=== PATIENT | male | born 1960 | race Hispanic/Latino ===

== ENCOUNTER 2019-01-17 00:05 | Emergency (ER) | payer OTHER ==
[2019-01-17 00:14] VITALS: BMI 34.0
[2019-01-17] MEDS ORDERED: Albuterol-Ipratrop 3 mg / 0.5 (3 ml) UD ONE (00:16)
[2019-01-17] MEDS ORDERED: Sodium Chloride 0.9% 1,000 ML IV STA (00:40)
--- NOTE | 2019-01-17 00:44 | ED PDOC ---
Arrival/HPI - General Time Seen by Provider: 01/17/19 00:30 Historian: Patient - History of Present Illness Narrative History of Present Illness (Text): 01/17/19 00:41 58 year old male, with no significant past medical history, presents to the emergency department with fever and cough, for 1 day. Patient states he began to feel feverish around 11:00 yesterday. Patient states he also began to have an associated cough. Patient states he is a smoker and drinker. Patient denies any nausea, vomiting, diarrhea, sore throat, chest pain, or any other complaints. Time/Duration: 24 hours Symptom Onset: Gradual Symptom Course: Unchanged Activities at Onset: Light Context: Home Past Medical History - Provider Review Nursing Documentation Reviewed: Yes Family/Social History - Physician Review Nursing Documentation Reviewed: Yes Family/Social History: No Known Family HX Allergies/Home Meds Allergies/Adverse Reactions: Allergies No Known Allergies Allergy (Verified 01/17/19 00:14) Review of Systems - Physician Review All systems were reviewed & negative as marked: Yes - Review of Systems Constitutional: Fevers Respiratory: Cough Cardiovascular: absent: Chest Pain Gastrointestinal: absent: Abdominal Pain, Diarrhea, Nausea, Vomiting Physical Exam - Physical Exam Narrative Physical Exam (Text): 01/17/19 00:45 Gen: VS reviewed, alert, well developed, well nourished, nontoxic, mild distress, hot to the touch, appears somewhat tremulous. ENT: normal pharynx. postnasal drip. Eye: EOMI, PERRL. Neck: no JVD, supple, no adenopathy. CV: rapid rate, regular rhythm, no rubs, no murmur, no gallops, S1, S2, pulses equal and strong. Pulm: no distress, clear to auscultation, no wheeze, no rhonchi, breath sounds equal, no rales. Abd: soft, nontender, no guarding, no rebound, no rigidity, normal bowel sounds. Ext: no edema. Skin: good color, no rash, no cyanosis. Psych: responds appropriately to questions, normal affect. Neuro: oriented x 3, CN2-12 intact grossly, motor intact, sensation intact. Vital Signs Reviewed: Yes Vital Signs Temp Pulse Resp BP Pulse Ox 01/17/19 00:30 102.9 F H 123 H 26 H 207/106 H 98 Temperature: Febrile Blood Pressure: Hypertensive Pulse: Tachycardic Respiratory Rate: Tachypneic Appearance: Positive for: Well-Appearing, Non-Toxic, Comfortable Pain Distress: None Mental Status: Positive for: Alert and Oriented X 3 Medical Decision Making ED Course and Treatment: 01/17/19 00:48 Impression: 58 year old male presents with cough and fever. Plan: -- VBG -- EKG -- Labs -- Chest X-ray -- Motrin -- Rapid Flu -- Reassess and disposition Prior Visits: Notes and results from previous visits were reviewed. Progress Notes: 01/17/19 03:15 patient seen for uri symptoms with fever and tachycardia. CTA was done was there was a concern for PE with elevated dimer and significant tachycardia with unremarkable CXR. patient remained stable throughout ED course. blood pressure improved without intervention. patient has agreed to start antihypertensive medications and to follow up with pcp. patient understands and is agreeable to plan. - RAD Interpretation Narrative RAD Interpretations (Text): 01/17/19 03:13 CTA OF THE CHEST WITH IV CONTRAST CLINICAL HISTORY: Pulmonary embolism. TECHNIQUE: Axial and reformatted sagittal and coronal images of the chest obtained after bolus IV contrast administration. FINDINGS: Mildly prominent mediastinal and hilar lymph nodes with the largest measuring 1.2 cm. Probably benign/reactive. Normal enhancement of the main pulmonary artery and right and left pulmonary arteries. Normal enhancement of the bilateral peripheral pulmonary arteries. There is no demonstrated pulmonary embolism. Normal thoracic aorta and visualized great vessels. There is no demonstrated aortic dissection. Normal heart and pericardium. Normal visualized trachea and bronchi. The lungs are well expanded. Normal pulmonary parenchyma. Normal pleura. Normal chest wall structures. Normal osseous structures. Normal visualized upper abdomen. IMPRESSION: No demonstrated pulmonary embolism or arterial dissection. Mildly prominent mediastinal and hilar lymph nodes with the largest measuring 1.2 cm. Probably benign/reactive. [employer] Machine Operator: Radiologist - EKG Interpretation EKG Interpretation (Text): 01/17/19 00:53 0016: sinus tachycardia at 129 bpm, nml qrs, nml axis, no acute sttw abn Interpreted by ED Physician: Yes - Scribe Statement The provider has reviewed the documentation as recorded by the Anuj Lomax Provider Scribe Attestation: All medical record entries made by the Neilibbriseyda were at my direction and personally dictated by me. I have reviewed the chart and agree that the record accurately reflects my personal performance of the history, physical exam, medical decision making, and the department course for this patient. I have also personally directed, reviewed, and agree with the discharge instructions and disposition. Disposition/Present on Arrival - Present on Arrival Any Indicators Present on Arrival: No - Disposition Have Diagnosis and Disposition been Completed?: Yes Diagnosis: Influenza A, Hypertension Disposition: HOME/ ROUTINE Disposition Time: 03:17 Patient Plan: Discharge Condition: STABLE Additional Instructions: return for any new or worsening symptoms. you must follow up with a primary care doctor for further treatment of your high blood pressure. Prescriptions: Hydrochlorothiazide [Microzide] 12.5 mg PO DAILY #30 cap Oseltamivir Phosphate [Tamiflu] 75 mg PO BID 5 Days #9 capsule Referrals: FAMILY PROVIDER,NO [Primary Care Provider] - Follow up with primary Forms: WORK NOTE
[2019-01-17 01:15] LABS: VENOUS BLOOD GAS BASE EXCESS -0.2 mmol/L (0.0-2.0); VENOUS BLOOD GAS PO2 44 mm/Hg (30-55); VENOUS BLOOD PH 7.39 (7.32-7.43)
[2019-01-17 01:21] LABS: BASO # 0.05 K/mm3 (0.0-2.0); BASO % 0.4 % (0.0-3.0); EOS % 0.2 % (1.5-5.0); HEMOGLOBIN 16.9 g/dL (14.0-18.0); LYMPH # 1.3 (1.2-3.4); LYMPH % 10.4 % (22.0-35.0); MEAN CELL VOLUME 94.5 fl (80.0-105.0); MEAN CORPUSCULAR HEMOGLOBIN 32.9 pg (25.0-35.0); MEAN CORPUSCULAR HGB CONC 34.8 g/dl (31.0-37.0); MEAN PLATELET VOLUME 11.7 fl (7.0-11.0); MONO # 1.3 (0.1-0.6); RBC 5.13 10^6/uL (3.5-6.1); RED CELL DISTRIBUTION WIDTH 13.3 % (11.5-14.5); WHITE BLOOD COUNT 12.6 10^3/uL (4.5-11.0)
[2019-01-17 01:25] LABS: INR 1.12; PARTIAL THROMBOPLASTIN TIME 35.2 Seconds (26.9-38.3); PROTHROMBIN TIME 12.4 SECONDS (9.4-12.5)
[2019-01-17 01:30] LABS: ALB/GLOB RATIO 1.2 (1.1-1.8); ALBUMIN 4.7 g/dL (3.0-4.8); BLOOD UREA NITROGEN 15 mg/dL (7-21); CALCIUM 9.3 mg/dL (8.4-10.5); GFR NON-AFRICAN AMERICAN > 60
[2019-01-17] MEDS ORDERED: Iohexol 350 MG/100 ML VIAL ONE (01:37)
[2019-01-17 01:41] LABS: TROPONIN I 0.06 ng/mL
[2019-01-17 01:44] LABS: ALT/SGPT 86 U/L (7-56); AST/SGOT 165 U/L (17-59)
[2019-01-17 02:16] VITALS: O2SAT 97
[2019-01-17 03:28] VITALS: PULSE 99; RESP 18
[2019-01-17 03:34] VITALS: TEMP 99
[2019-01-17 04:18] VITALS: BP 183/91
--- NOTE | 2019-01-17 08:36 | CT ---
Date of service: 01/17/2019 PROCEDURE: CT Chest with contrast (Pulmonary Angiogram) HISTORY: pulmonary embolism COMPARISON: None available. TECHNIQUE: Axial computed tomography images were obtained of the chest in the pulmonary arterial phase of enhancement. Coronal and sagittal reformatted images were created and reviewed. Intravenous contrast dose: 100 cc of Omni 350 Radiation dose: Total exam DLP = 603.26 mGy-cm. This CT exam was performed using one or more of the following dose reduction techniques: Automated exposure control, adjustment of the mA and/or kV according to patient size, and/or use of iterative reconstruction technique. FINDINGS: PULMONARY ARTERIES: Unremarkable. No pulmonary embolism. AORTA: No acute findings. No thoracic aortic aneurysm. Minimal aortic calcification. Mural thickening. LUNGS: Unremarkable. No nodule, mass or pulmonary consolidation. PLEURAL SPACES: Unremarkable. No effusion or pneumothorax. HEART: Unremarkable. No cardiomegaly. No significant pericardial effusion. LYMPH NODES: Mildly enlarged hilar lymph nodes BONES, CHEST WALL: Unremarkable. No fracture or destructive lesion OTHER FINDINGS: The report concurs with the preliminary [facility] report IMPRESSION: Unremarkable CT pulmonary angiogram. No pulmonary embolus.
--- NOTE | 2019-01-17 09:50 | RAD ---
Date of service: 01/17/2019 HISTORY: chest pain COMPARISON: No prior. FINDINGS: LUNGS: No active pulmonary disease. PLEURA: No significant pleural effusion identified, no pneumothorax apparent. CARDIOVASCULAR: No aortic atherosclerotic calcification present. Normal cardiac size. No pulmonary vascular congestion. OSSEOUS STRUCTURES: No significant abnormalities. VISUALIZED UPPER ABDOMEN: Normal. OTHER FINDINGS: None. IMPRESSION: No active disease.
--- NOTE | 2019-01-17 22:50 | CARD ---
APPROVED REPORT Date of service: 01/17/2019 EKG Measurement Heart [id number] <Conclusion> Sinus tachycardia Possible Left atrial enlargement Cannot rule out Anterior infarct, age undetermined Abnormal ECG
== END 2019-01-17 03:26 | disposition home or self-care (01) ==
LOC: ED 00:05
DX: J09.X2 Influenza due to identified novel influenza A virus with other respiratory manifestations (principal); I10 Essential (primary) hypertension
CPT/HCPCS: 71045; 71275; 80053; 80320; 82803; 83735; 84145; 84443; 84484; 85025; 85378; 85610; 85730; 87804; 93005; 96360; 99284; J7030; Q9967